=== PATIENT | male | born 1950 ===

== ENCOUNTER 2025-05-26 02:03 | Outpatient (CLI) | payer MEDICARE, SELFPAY ==
[2025-05-26 08:09] LABS: ALT 31 U/L (16-63); AST 21 U/L (15-37); Albumin 3.9 g/dL (3.4-5.0); Alkaline Phosphatase 76 U/L (46-116); Anion Gap 5.5 mmol/L (3-11); BUN 30 mg/dL (7-18); Bilirubin, Total 0.6 mg/dL (0.2-1.0); CO2 28.5 mmol/L (21.0-32.0); Calcium 9.2 mg/dL (8.5-10.1); Chloride 105 mmol/L (98-107); Estimated GFR 52.09 (mL/min/1.73m2); Glucose 110 mg/dL (74-106); Potassium 4.7 mmol/L (3.5-5.1); Sodium 139 mmol/L (136-145); Total Protein 8.0 g/dL (6.4-8.2)
[2025-05-26] MEDS: Normal Saline - Diluent 50 ML VIAL IJ (08:38)
[2025-05-26] MEDS: Omnipaque 350 MG/ML 100 ML BTL IJ (08:40)
--- NOTE | 2025-05-26 08:49 | DI.CT_ITS ---
Exam(s) CT ABDOMEN PELVIS CTA EXAM: CT ABDOMEN PELVIS CTA CLINICAL HISTORY: AAA WO rupture I71.43. TECHNIQUE: Imaging Protocol: Axial computed tomography images with coronal and sagittal reformatted images were created and reviewed CONTRAST MATERIAL: Intravenous: Omnipaque 350 Contrast volume:100 ml Oral: None COMPARISON: No exams were available for comparison FINDINGS: ABDOMEN: AORTOILIAC ARTERIAL: There is a fusiform infrarenal abdominal aortic aneurysm with maximum external diameter of 4.1 cm. No dissection. 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 Aneurysmal dilatation does not appear to extend beyond the celiac into the splenic and common hepatic arteries.There is no significant aneurysmal dilatation nor stenosis within the superior mesenteric artery and no evidence of intraluminal embolus within this vessel.The inferior mesenteric artery is not occluded. There is no significant stenosis at the aortic bifurcation. 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 The length of this aneurysm is 7.5 cm. The maximum diameter is 5.5 cm. 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 The left external iliac artery distal to the proximal stenosis exhibits upper normal diameter of 1 cm. There is no significant aneurysm of the right common iliac artery nor of the right external iliac artery. 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 There are no aneurysms of the right common femoral artery. There is mild enlargement of the left common femoral artery at its junction with the origin of the left SFA. GI: There is no ascites. There are no ischemic appearing bowel loops. No evidence bowel obstruction, free air, nor abscess. LIVER: There are no focal hepatic lesions nor dilatation of intrahepatic ducts. GALLBLADDER/BILIARY: No obvious gallbladder pathology. CBD is not dilated. PANCREAS: No evidence of pancreatic mass nor dilatation of the pancreatic duct. SPLEEN: Spleen is not enlarged. There are no intrasplenic lesions. Splenic and portal veins are patent. ADRENALS: There are no significant adrenal masses. KIDNEYS: Both kidneys exhibit normal size. Some plaque is noted at the origin of the renal arteries. No poststenotic dilatation. There are no renal calculi nor hydronephrosis. No solid renal masses. A small benign cyst in the posterior cortex of the left kidney measuring less than 1 cm is noted. This does not require further imaging workup.. LYMPH NODES: There is no retroperitoneal nor para-aortic adenopathy. No obvious mesenteric masses. ABDOMINAL WALL: No evidence of significant anterior abdominal wall hernia. GI: There is no evidence of bowel obstruction, free air, nor abscess. PELVIS: LYMPH NODES: There is no intrapelvic nor inguinal adenopathy. GI: No evidence of appendicitis.No evidence of sigmoid diverticulitis. URINARY BLADDER: Partially collapsed. REPRODUCTIVE: Prostate size upper normal. Seminal vesicles unremarkable. OSSEOUS: No fractures. There is a single sclerotic bone lesion the posterior aspect of the L2 vertebral body which measures 6 by 5 mm and is probably a benign bone island. There are no lytic osseous lesions evident. IMPRESSION: 1. There is a fusiform infrarenal abdominal aortic aneurysm with maximum diameter 4.1 cm. 2. 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 3. 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 The distal aspect of the aneurysm in the left common iliac artery is at the junction with the left external iliac artery where there is a stenosis evident. There does not appear to be true aneurysmal dilatation of the left external iliac artery. 4. On the opposite-right side there is some arterial megaly/mild dilatation of the right common iliac artery but without prominent aneurysm. However, there is a significant focal aneurysm in the right internal iliac artery located a few cm distal to its origin. The maximum diameter of this aneurysm is 1.6 cm. There is no occlusion of the artery at this level. Other findings as above. Vascular surgery consultation recommended as soon as possible, particularly given the iliac artery findings. Report and recommendation for referral to vascular surgery called by myself to the referring primary care provider Dr. Tristan 05/26/2025 at 2:15pm RADIATION DOSE DELIVERED: 1,323.21mGy.cm Total DLP DATA REPOSITORY: All CT scans at this facility are submitted to the National Radiology Data Registry (NRDR) Dose Index Registry (DIR) with the [employer] ([employer]). RADIATION OPTIMIZATION: All CT scans at this facility use at least one of these dose optimization techniques: automated exposure control; mA and/or kV adjustment per patient size (includes targeted exams where dose is matched to clinical indication); or iterative reconstruction.
== END 2025-05-26 02:23 ==
PROVIDERS: Visit Provider Internal Medicine
DX: I71.43 Infrarenal abdominal aortic aneurysm, without rupture (principal)
CPT/HCPCS: 80053; 74174; J3490

== ENCOUNTER 2025-06-30 11:37 | Outpatient (CLI) | payer MEDICARE, SELFPAY ==
[2025-06-30 10:17] LABS: Anion Gap 8.3 mmol/L (3-11); BUN 31 mg/dL (7-18); CO2 26.7 mmol/L (21.0-32.0); Calcium 8.7 mg/dL (8.5-10.1); Chloride 105 mmol/L (98-107); Estimated GFR 47.95 (mL/min/1.73m2); Glucose 101 mg/dL (74-106); Potassium 5.5 mmol/L (3.5-5.1); Sodium 140 mmol/L (136-145)
== END 2025-06-30 11:38 | disposition home or self-care (01) ==
LOC: LBO 11:38
PROVIDERS: Visit Provider Nurse Practitioner
DX: I10 Essential (primary) hypertension (principal)
CPT/HCPCS: 36415; 80048

== ENCOUNTER 2025-09-19 09:39 | Outpatient (CLI) | payer MEDICARE, SELFPAY ==
[2025-09-19 09:20] LABS: Anion Gap 2.7 mmol/L (3-11); BUN 28 mg/dL (9-23); CO2 26.3 mmol/L (20.0-31.0); Calcium 9.0 mg/dL (8.3-10.6); Chloride 110 mmol/L (98-107); Cholesterol 139 mg/dL (<200); Glucose 97 mg/dL (74-106); HDL Cholesterol 59 mg/dL (>40); Potassium 4.9 mmol/L (3.5-5.1); Sodium 139 mmol/L (136-145)
== END 2025-09-19 09:40 | disposition home or self-care (01) ==
LOC: LBO 09:40
PROVIDERS: Visit Provider Student in an Organized Health Care Education/Training Program
DX: I10 Essential (primary) hypertension (principal); E78.5 Hyperlipidemia, unspecified
CPT/HCPCS: 36415; 80048; 80061; 83695